=== PATIENT | male | born 1970 | race Caucasian/White ===

== ENCOUNTER 2019-05-15 08:50 | Inpatient (IN) | payer SELFPAY ==
[~2019-05-15] VITALS: Ht 182 cm; Wt 82.2 kg
[2019-05-15] VITALS (12 sets, daily range): BP systolic 74–121; BP diastolic 51–91
[2019-05-15] MEDS ORDERED: ZIPRASIDONE 20 MG INJ (GEODON) VIAL IM ONE ×2 (09:00→09:30)
[2019-05-15] MEDS ORDERED: WATER (STERILE) FOR INJECTION 10 ML ONE (09:01)
[2019-05-15 09:26] LABS: BASOPHILS % (AUTO) 0 % (0-10); EOSINOPHILS # (AUTO) 0.1 10^3/uL (0.0-0.3); EOSINOPHILS % (AUTO) 1 % (0-10); HEMATOCRIT 44 % (40-54); LYMPHOCYTES # (AUTO) 4.7 X 10^3 (1.0-4.0); LYMPHOCYTES % (AUTO) 58 % (12-44); MEAN CORPUSCULAR HEMOGLOBIN 28 PG (25-34); MEAN CORPUSCULAR HGB CONC 32 G/DL (32-36); MEAN CORPUSCULAR VOLUME 88 FL (80-99); MEAN PLATELET VOLUME 9.1 FL (7.4-10.4); MONOCYTES # (AUTO) 0.5 X 10^3 (0.0-1.0); MONOCYTES % (AUTO) 6 % (0-12); NEUTROPHILS # (AUTO) 2.9 X 10^3 (1.8-7.8); NEUTROPHILS % (AUTO) 36 % (42-75); PLATELET COUNT 354 10^3/uL (130-400); RED CELL DISTRIBUTION WIDTH 16.8 % (10.0-14.5); WHITE BLOOD COUNT 8.1 10^3/uL (4.3-11.0)
[2019-05-15 09:26] LABS: BILIRUBIN,URINE NEGATIVE (NEGATIVE); CLARITY,URINE CLEAR; COLOR,URINE YELLOW; GLUCOSE, URINE (UA) NEGATIVE (NEGATIVE); KETONES,URINE NEGATIVE (NEGATIVE); LEUKOCYTE ESTERASE ,URINE NEGATIVE (NEGATIVE); NITRITE,URINE NEGATIVE (NEGATIVE); PROTEIN,URINE NEGATIVE (NEGATIVE)
[2019-05-15] MEDS ORDERED: LORazepam INJ 2 MG/ML (ATIVAN) VIAL IVP ONE (09:30)
[2019-05-15 09:36] LABS: BACTERIA,URINE NEGATIVE /HPF
[2019-05-15 09:39] LABS: AMPHETAMINE SCREEN, URINE NEGATIVE (NEGATIVE); BARBITURATE SCREEN URINE NEGATIVE (NEGATIVE); BENZODIAZEPINES SCREEN URINE NEGATIVE (NEGATIVE); CANNABINOID SCREEN, URINE NEGATIVE (NEGATIVE); COCAINE SCREEN URINE NEGATIVE (NEGATIVE); METHADONE STAT NEGATIVE (NEGATIVE); METHAMPHETAMINE SCREEN URINE S NEGATIVE (NEGATIVE); OPIATE SCREEN URINE NEGATIVE (NEGATIVE); OXYCODONE STAT NEGATIVE (NEGATIVE); PROPOXYPHENE STAT NEGATIVE (NEGATIVE); TRICYCLIC ANTIDEPRESSANTS SCRE NEGATIVE (NEGATIVE)
--- NOTE | 2019-05-15 09:54 | Diagnostic Imaging Report ---
Indication: Hypothermia Portable chest 9:45 AM Heart size and pulmonary vascularity are normal. Lungs are clear. There are no effusions or pneumothoraces. IMPRESSION: No acute abnormalities in the chest Dictated by: Dictated on workstation # [id number]
[2019-05-15 09:57] LABS: ALANINE AMINOTRANSFERASE 56 U/L (0-55); ALBUMIN 3.4 GM/DL (3.2-4.5); ALKALINE PHOSPHATASE 50 U/L (40-136); BILIRUBIN,TOTAL 0.1 MG/DL (0.1-1.0); BUN/CREATININE RATIO 17; CALCIUM 7.8 MG/DL (8.5-10.1); CARBON DIOXIDE 23 MMOL/L (21-32); CHLORIDE 113 MMOL/L (98-107); CREATININE SERUM 0.76 MG/DL (0.60-1.30); GFR ESTIMATED > 60; GLUCOSE 101 MG/DL (70-105); MAGNESIUM 1.9 MG/DL (1.6-2.4); POTASSIUM 3.8 MMOL/L (3.6-5.0); SALICYLATE < 5.0 MG/DL (5.0-20.0); SODIUM 146 MMOL/L (135-145); TOTAL PROTEIN 6.7 GM/DL (6.4-8.2)
[2019-05-15 09:59] LABS: ACETAMINOPHEN < 10 UG/ML (10-30)
--- NOTE | 2019-05-15 10:32 | Diagnostic Imaging Report ---
PROCEDURE: CT head, face, and cervical spine without contrast. TECHNIQUE: Multiple contiguous axial images were obtained through the head, neck, and facial bones without the use of intravenous contrast. Sagittal and coronal reformations through the cervical spine and facial bones were also performed. Auto Exposure Controls were utilized during the CT exam to meet ALARA standards for radiation dose reduction. INDICATION: Found unresponsive. COMPARISON: No prior studies are available for comparison. FINDINGS: CT HEAD: The ventricles and sulci are within normal limits. No sulcal effacement or midline shift is detected. No acute intra-axial or extra-axial hemorrhage is detected. The cisterns are patent. The visualized paranasal sinuses are clear. IMPRESSION: No acute intracranial process is detected. CT CERVICAL SPINE: The alignment is normal. There is significant degenerative disc disease at the C5-C6 level with disc space narrowing and marginal spurring. No fractures are identified. The prevertebral tissues are within normal limits. The odontoid is intact. IMPRESSION: Cervical spondylosis. No acute bony abnormality is detected. CT FACE: There is an obliquely oriented fracture through the left mandibular ramus. There is a small amount of callus formation present, consistent with a more subacute fracture. The zygomatic arches are intact. The maxillary sinus hdez are intact. There appears to be an old fracture of the medial wall of the left orbit. The right orbit is unremarkable. There are minimally displaced bilateral nasal bone fractures, age indeterminate. The nasal septum shows some deviation to the right but no fracture is identified. A lucency extends through the left para-midline of the hard palate. The patient reportedly has a history of cleft palate. The frontal sinus is intact. The visualized paranasal sinuses are clear. No air/fluid levels are identified. The mastoids are well aerated. IMPRESSION: Subacute left mandibular ramus fracture. There are also age indeterminate fractures of the bilateral nasal bones. There is an old fracture of the medial wall of the left orbit. Dictated by: Dictated on workstation # [id number]
--- NOTE | 2019-05-15 10:59 | ED Neurological Problem ---
General Chief Complaint: Altered Mental Status Stated Complaint: HYPOTHERMIA Nursing Triage Note: PT ARRIVED PER EMS, PT HAS ALTERED MENTAL STATUS, PT WAS FOUND OUTSIDE SITTING DOWN AND FELL OVER. ETOH NOTED ON BREATH. PT HAS IV X2 R AND L FA #16 BY EMS. PT HAS HAD 1L WARMED NS BY EMS. GSC BY DR MCCURDY 11. PT IS NON COHERENT WHEN TRYING TO TALK. PT IS TONY SALAZAR AT THIS X. CURRENT TEMP RECTALLY 35.5 C. PT IS UNABLE TO GIVE ANY INFORMATION WHEN ASKED. Nursing Sepsis Screen: No Definite Risk Source: family, EMS, other (social media) Exam Limitations: no limitations History of Present Illness Date Seen by Provider: May 15, 2019 Time Seen by Provider: 08:53 Initial Comments This 49-year-old man initially presented via EMS as a Tony andres. He was found walking around the [facility] and was witnessed to sit down and then tipped over. He is not talking coherently and appears intoxicated with the smell of alcohol on his breath. He is alert. GCS is 11. There is no evidence of trauma and the fall from sitting position was nontraumatic according to EMS. I was eventually able to speak with patient's father, Ephraim Reeder, . He reports patient is homeless and drinks excessively. He has spent much of his adult life incarcerated. It is a Ephraim's opinion that the patient needs rehabilitation services. Father does not know of any health problems other than alcohol abuse and homelessness. C-collar could not be applied due to patient's uncooperative state. EMS initially reported temperature was 89. Temperature rectally was measured as 95 on arrival. Patient was warmed with warm blankets and placed in a warm room. EMS started warmed fluids. Allergies and Home Medications Allergies Coded Allergies: No Known Drug Allergies (Unverified , 05/15/19) Patient Home Medication List Home Medication List Reviewed: Yes Review of Systems Review of Systems Constitutional: see HPI Eyes: No Symptoms Reported Ears, Nose, Mouth, Throat: no symptoms reported Respiratory: no symptoms reported Cardiovascular: no symptoms reported Gastrointestinal: no symptoms reported Genitourinary: no symptoms reported Musculoskeletal: no symptoms reported Skin: no symptoms reported Psychiatric/Neurological: See HPI Endocrine: No Symptoms Reported Hematologic/Lymphatic: No Symptoms Reported Past Vujuozv-Kisegs-Hutprw Hx Past Med/Social Hx: Reviewed and Corrections made Patient Social History Alcohol Use: Regular Use Smoking Status: Unknown if Ever Smoked Recent Foreign Travel: No Contact w/Someone Who Travel: No Recent Infectious Disease Expo: No Past Medical History Surgeries: No (unknown) Respiratory: No (unknown) Cardiac: No (unknown) Neurological: No (unknown) Genitourinary: No (unknown) Gastrointestinal: No (unknown) Musculoskeletal: No (unknown) Endocrine: No (unknown) HEENT: Yes (cleft lip and palate) Cancer: No (unknown) Psychosocial: Yes (alcohol dependence) Physical Exam Vital Signs Vital Signs - First Documented 05/15/19 08:50 Temp 35.5 Pulse 71 Resp 12 B/P (MAP) 112/75 (87) Pulse Ox 97 O2 Delivery Room Air Capillary Refill : Less Than 3 Seconds Height, Weight, BMI Height: '" Weight: lbs. oz. kg; 27.00 BMI Method: General Appearance: WD/WN, other (agitated and combative at times) HEENT: PERRL/EOMI, normal ENT inspection, pharynx normal, other (cleft lip/palate) Neck: normal inspection Respiratory: lungs clear, normal breath sounds, no respiratory distress, no accessory muscle use Cardiovascular: regular rate, rhythm, no edema, no murmur Gastrointestinal: normal bowel sounds, non tender, soft Extremities: normal inspection, no pedal edema Neurologic/Psychiatric: other (GCS 11. Patient does not speak in comprehensible words. He does laugh as a response to some comments and questions. He moves all 4 extremities.) Skin: normal color, warm/dry Progress/Results/Core Measures Results/Orders Lab Results Laboratory Tests Test 05/15/19 09:00 05/15/19 09:17 Range/Units Urine Color YELLOW Urine Clarity CLEAR Urine pH 6.0 5-9 Urine Specific [place] <=1.005 1.016-1.022 Urine Protein NEGATIVE NEGATIVE Urine Glucose (UA) NEGATIVE NEGATIVE Urine Ketones NEGATIVE NEGATIVE Urine Nitrite NEGATIVE NEGATIVE Urine Bilirubin NEGATIVE NEGATIVE Urine Urobilinogen 0.2 < = 1.0 MG/DL Urine Leukocyte Esterase NEGATIVE NEGATIVE Urine RBC (Auto) NEGATIVE NEGATIVE Urine RBC NONE /HPF Urine WBC NONE /HPF Urine Squamous Epithelial Cells NONE /HPF Urine Crystals NONE /LPF Urine Bacteria NEGATIVE /HPF Urine Casts NONE /LPF Urine Mucus NEGATIVE /LPF Urine Culture Indicated NO Urine Opiates Screen NEGATIVE NEGATIVE Urine Oxycodone Screen NEGATIVE NEGATIVE Urine Methadone Screen NEGATIVE NEGATIVE Urine Propoxyphene Screen NEGATIVE NEGATIVE Urine Barbiturates Screen NEGATIVE NEGATIVE Ur Tricyclic Antidepressants Screen NEGATIVE NEGATIVE Urine Phencyclidine Screen NEGATIVE NEGATIVE Urine Amphetamines Screen NEGATIVE NEGATIVE Urine Methamphetamines Screen NEGATIVE NEGATIVE Urine Benzodiazepines Screen NEGATIVE NEGATIVE Urine Cocaine Screen NEGATIVE NEGATIVE Urine Cannabinoids Screen NEGATIVE NEGATIVE White Blood Count 8.1 4.3-11.0 10^3/uL Red Blood Count 5.02 4.35-5.85 10^6/uL Hemoglobin 14.0 13.3-17.7 G/DL Hematocrit 44 40-54 % Mean Corpuscular Volume 88 80-99 FL Mean Corpuscular Hemoglobin 28 25-34 PG Mean Corpuscular Hemoglobin Concent 32 32-36 G/DL Red Cell Distribution Width 16.8 H 10.0-14.5 % Platelet Count 354 130-400 10^3/uL Mean Platelet Volume 9.1 7.4-10.4 FL Neutrophils (%) (Auto) 36 L 42-75 % Lymphocytes (%) (Auto) 58 H 12-44 % Monocytes (%) (Auto) 6 0-12 % Eosinophils (%) (Auto) 1 0-10 % Basophils (%) (Auto) 0 0-10 % Neutrophils # (Auto) 2.9 1.8-7.8 X 10^3 Lymphocytes # (Auto) 4.7 H 1.0-4.0 X 10^3 Monocytes # (Auto) 0.5 0.0-1.0 X 10^3 Eosinophils # (Auto) 0.1 0.0-0.3 10^3/uL Basophils # (Auto) 0.0 0.0-0.1 10^3/uL Sodium Level 146 H 135-145 MMOL/L Potassium Level 3.8 3.6-5.0 MMOL/L Chloride Level 113 H 98-107 MMOL/L Carbon Dioxide Level 23 21-32 MMOL/L Anion Gap 10 5-14 MMOL/L Blood Urea Nitrogen 13 7-18 MG/DL Creatinine 0.76 0.60-1.30 MG/DL Estimat Glomerular Filtration Rate > 60 BUN/Creatinine Ratio 17 Glucose Level 101 70-105 MG/DL Calcium Level 7.8 L 8.5-10.1 MG/DL Corrected Calcium 8.3 L 8.5-10.1 MG/DL Magnesium Level 1.9 1.6-2.4 MG/DL Total Bilirubin 0.1 0.1-1.0 MG/DL Aspartate Amino Transf (AST/SGOT) 68 H 5-34 U/L Alanine Aminotransferase (ALT/SGPT) 56 H 0-55 U/L Alkaline Phosphatase 50 40-136 U/L Total Protein 6.7 6.4-8.2 GM/DL Albumin 3.4 3.2-4.5 GM/DL Salicylates Level < 5.0 L 5.0-20.0 MG/DL Acetaminophen Level < 10 L 10-30 UG/ML Serum Alcohol 379 *H <10 MG/DL My Orders Orders - DAGOBERTO CORLEY MD Ziprasidone Injection (Geodon Injection) (05/15/19 09:00) Water (Sterile) For Injection (Sterile W (05/15/19 09:01) Acetaminophen (05/15/19 09:17) Alcohol (05/15/19 09:17) Cbc With Automated Diff (05/15/19 09:17) Comprehensive Metabolic Panel (05/15/19 09:17) Drug Screen Stat (Urine) (05/15/19 09:17) Magnesium (05/15/19 09:17) Salicylate (05/15/19 09:17) Ua Culture If Indicated (05/15/19 09:17) Chest 1 View, Ap/Pa Only (05/15/19 09:17) Ziprasidone Injection (Geodon Injection) (05/15/19 09:30) Lorazepam Injection (Ativan Injection) (05/15/19 09:30) Ct Head/Face/Cervical Wo (05/15/19 10:08) Ondansetron Injection (Zofran Injectio (05/15/19 11:00) Medications Given in ED Current Medications Medications Dose Ordered Sig/Ciera Route Start Time Stop Time Status Last Admin Dose Admin Lorazepam 1 mg ONCE ONCE IVP 05/15/19 09:30 05/15/19 09:31 DC 05/15/19 09:30 1 MG Ondansetron HCl 8 mg ONCE ONCE IVP 05/15/19 11:00 05/15/19 11:01 DC 05/15/19 10:56 8 MG Sterile Water 10 ml @ STK-MED ONCE .ROUTE 05/15/19 09:01 05/15/19 09:06 DC 05/15/19 09:10 1.2 MLS/HR Ziprasidone 20 mg STK-MED ONCE IM 05/15/19 09:00 05/15/19 09:06 DC 05/15/19 09:10 20 MG Vital Signs/I&O 05/15/19 05/15/19 08:50 10:58 Temp 35.5 35.5 Pulse 71 82 Resp 12 11 B/P (MAP) 112/75 (87) 95/7 (87) Pulse Ox 97 98 O2 Delivery Room Air Blood Pressure Mean: 87 Progress Progress Note : Progress Note Patient was agitated and required Geodon and Ativan for his safety. CT of the head, face and C-spine was obtained. No acute injuries were identified. There is a questionable subacute jaw fracture that looks like it is at least a couple weeks old. Blood alcohol was 379. Labs were otherwise fairly unremarkable. Patient was sleeping after medications and was maintaining his airway. He was admitted to the ICU. Diagnostic Imaging Diagonstic Imaging: Xray Plain Films/CT/US/NM/MRI: chest Comments Chest x-ray viewed by me and report reviewed. See report below: NAME: TONY SALAZAR MED REC#: [id number] PT STATUS: REG ER : 05/15/1980 PHYSICIAN: DAGOBERTO CORLEY MD ADMIT DATE: 05/15/19/ER Signed Date of Exam:05/15/19 CHEST 1 VIEW, AP/PA ONLY Indication: Hypothermia Portable chest 9:45 AM Heart size and pulmonary vascularity are normal. Lungs are clear. There are no effusions or pneumothoraces. IMPRESSION: No acute abnormalities in the chest Dictated by: Dictated on workstation # [id number] Dict: 05/15/1953 Trans: 05/15/19 0953 [id number] Interpreted by: NAREN BALTAZAR MD Electronically signed by: NAREN BALTAZAR MD 05/15/1954 Diagonstic Imaging: CT Plain Films/CT/US/NM/MRI: facial bones, c-spine, head Comments CT head, face, and neck viewed by me and report reviewed. See report below: NAME: BEST REEDER MED REC#: [id number] PT STATUS: ADM Geronimo : 1970 PHYSICIAN: DAGOBERTO CORLEY MD ADMIT DATE: 05/15/19/ICU Draft Date of Exam:05/15/19 CT HEAD/FACE/CERVICAL WO PROCEDURE: CT head, face, and cervical spine without contrast. TECHNIQUE: Multiple contiguous axial images were obtained through the head, neck, and facial bones without the use of intravenous contrast. Sagittal and coronal reformations through the cervical spine and facial bones were also performed. Auto Exposure Controls were utilized during the CT exam to meet ALARA standards for radiation dose reduction. INDICATION: Found unresponsive. COMPARISON: No prior studies are available for comparison. FINDINGS: CT HEAD: The ventricles and sulci are within normal limits. No sulcal effacement or midline shift is detected. No acute intra-axial or extra-axial hemorrhage is detected. The cisterns are patent. The visualized paranasal sinuses are clear. IMPRESSION: No acute intracranial process is detected. CT CERVICAL SPINE: The alignment is normal. There is significant degenerative disc disease at the C5-C6 level with disc space narrowing and marginal spurring. No fractures are identified. The prevertebral tissues are within normal limits. The odontoid is intact. IMPRESSION: Cervical spondylosis. No acute bony abnormality is detected. CT FACE: There is an obliquely oriented fracture through the left mandibular ramus. There is a small amount of callus formation present, consistent with a more subacute fracture. The zygomatic arches are intact. The maxillary sinus hdez are intact. There appears to be an old fracture of the medial wall of the left orbit. The right orbit is unremarkable. There are minimally displaced bilateral nasal bone fractures, age indeterminate. The nasal septum shows some deviation to the right but no fracture is identified. A lucency extends through the left para-midline of the hard palate. The patient reportedly has a history of cleft palate. The frontal sinus is intact. The visualized paranasal sinuses are clear. No air/fluid levels are identified. The mastoids are well aerated. IMPRESSION: Subacute left mandibular ramus fracture. There are also age indeterminate fractures of the bilateral nasal bones. There is an old fracture of the medial wall of the left orbit. Dictated on workstation # [id number] Dict: 05/15/19 1013 Trans: 05/15/19 1103 [id number] Interpreted by: MED CHENEY MD Departure Communication (Admissions) Time/Spoke to Admitting Phy: 10:44 Dr. Shetty Impression Primary Impression: Alcohol intoxication Qualified Codes: F10.929 - Alcohol use, unspecified with intoxication, unspecified Additional Impression: AMS (altered mental status) Qualified Codes: R41.82 - Altered mental status, unspecified Disposition: 09 ADMITTED INPATIENT Condition: Improved Admissions Decision to Admit Reason: Admit from ER (General) Decision to Admit/Date: May 15, 2019 Time/Decision to Admit Time: 09:00 Departure-Patient Inst. Referrals: UNKNOWN (PCP) Primary Care Physician DAGOBERTO CORLEY MD May 15, 2019 10:59
[2019-05-15] MEDS ORDERED: ONDANSETRON 4 MG/2 ML (SDV) Z0FRAN IVP ONE (11:00)
[2019-05-15] MEDS ORDERED: ZIPRASIDONE 20 MG INJ (GEODON) VIAL IM NR (11:35)
[2019-05-15] MEDS ORDERED: ONDANSETRON 4 MG/2 ML (SDV) Z0FRAN IVP PRN (11:45)
[2019-05-15] MEDS ORDERED: CATHETER FLUSH 10 ML SYR IV PRN (11:45)
[2019-05-15] MEDS ORDERED: LACTATED RINGERS 1,000 ML IV SCH (11:45)
[2019-05-15] MEDS ORDERED: LORazepam INJ 2 MG/ML (ATIVAN) VIAL IVP PRN (11:45)
[2019-05-15] MEDS ORDERED: THIAMINE INJECTION 100 MG, FOLIC ACID INJECTION 1 MG, MAGNESIUM SULFATE 2 GM, VITAMIN M... IV SCH ×15 (11:48→12:30)
[2019-05-15] MEDS ORDERED: ANTACID SUSP 30 ML UDC (MYLANTA) PO PRN (12:00)
[2019-05-15] MEDS ORDERED: ONDANSETRON 4 MG (ZOFRAN) ORAL DISSOLVE TAB SL PRN (12:00)
[2019-05-15] MEDS ORDERED: D5 1/2 NS 1000 ML IV SOLUTION 1,000 ML IV PRN (12:00)
[2019-05-15] MEDS ORDERED: LORazepam INJ 2 MG/ML (ATIVAN) VIAL IM/IV PRN (12:00)
[2019-05-15] MEDS ORDERED: ONDANSETRON 4 MG/2 ML (SDV) Z0FRAN IV PRN (12:00)
[2019-05-15] MEDS ORDERED: SENNA W/DOCUSATE (SENOKOT S) TABLET PO PRN (12:00)
[2019-05-15] MEDS: LORazepam INJ 2 MG/ML (ATIVAN) VIAL IV PRN ×3 (12:38→20:15)
--- NOTE | 2019-05-15 14:43 | NUR ---
THIS RN HAS ATTEMPTED SEVERAL TIMES TO PLACE C02 MONITOR ON PT, PT REFUSING AND SWINGING AT THIS RN. BED ALARM ON. BED RAILS UP X 4, PT BACK TO SLEEP AT THIS TIME SA02 NOTED AT 100% ON ROOM AIR.
--- NOTE | 2019-05-15 15:57 | History & Physical-Hospitalist ---
History of Present Illness HPI/Chief Complaint Prince Reeder is a 49-year-old male with past medical history of alcohol abuse who presented with altered mental status. He was reportedly found outside of the local [facility]. Upon arrival he was found to have a blood alcohol content of 370. He was lethargic but he was alert awake and alert enough that he did not require intubation. At the time of my examination he is lethargic and uncooperative. There is no family at the bedside. Source: patient Exam Limitations: no limitations Date Seen 05/15/19 Time Seen by a Provider: 12:00 Attending Physician Sigifredo Nicholson MD PCP Unknown Referring Physician Date of Admission May 15, 2019 at 11:02 Home Medications & Allergies Home Medications Reviewed patient Home Medication Reconciliation performed by pharmacy medication reconciliations resident care technician and/or nursing. Patients Allergies have been reviewed. Allergies Allergies Coded Allergies No Known Drug Allergies (Unverified05/15/19) Past Symbwyp-Aacdtv-Dmgzev Hx Past Med/Social Hx: Reviewed Nursing Past Med/Soc Hx Patient Social History Alcohol Use: Regular Use Smoking Status: Unknown if Ever Smoked Recent Foreign Travel: No Contact w/other who traveled: No Recent Infectious Disease Expo: No Review of Systems Constitutional: see HPI Physical Exam Physical Exam Vital Signs Vital Signs - First Documented 05/15/19 08:50 Temp 35.5 Pulse 71 Resp 12 B/P (MAP) 112/75 (87) Pulse Ox 97 O2 Delivery Room Air Capillary Refill : Less Than 3 Seconds Height, Weight, BMI Height: '" Weight: lbs. oz. kg; 22.09 BMI Method: General Appearance: No Apparent Distress, WD/WN, Other (Lethargic and uncooperative) HEENT: PERRL/EOMI, Pharynx Normal Neck: Normal Inspection, Supple Respiratory: Lungs Clear, Normal Breath Sounds, No Respiratory Distress Cardiovascular: Regular Rate, Rhythm, No Edema, No Murmur Gastrointestinal: Normal Bowel Sounds, Soft; No Distended Extremity: Normal Inspection, No Pedal Edema Neurologic/Psychiatric: Other (Lethargic and uncooperative) Skin: Normal Color, Warm/Dry Results Results/Procedures Labs Laboratory Tests 05/15/19 09:17 Patient resulted labs reviewed. Imaging: Reviewed Imaging Report Assessment/Plan Admission Diagnosis Acute alcohol intoxication Admission Status: Observation Assessment and Plan Acute alcohol intoxication Alcohol dependence Acute alcoholic hepatitis EtOH 370 on arrival GCS 11 Admitted to ICU Monitor on telemetry Will begin CIWA protocol after through acute intoxication Required Geodon on arrival due to agitation Continue Geodon as needed LFTs mildly elevated, continue to monitor DVT prophylaxis: Lovenox Diagnosis/Problems Diagnosis/Problems (1) Alcohol dependence Status: Acute Qualifiers: Substance use status: with intoxication Complication of substance-induced condition: uncomplicated Qualified Codes: F10.220 - Alcohol dependence with intoxication, uncomplicated (2) Acute alcoholic hepatitis Status: Acute (3) Hypernatremia Status: Acute SIGIFREDO NICHOLSON MD May 15, 2019 15:57
--- NOTE | 2019-05-15 16:33 | NUR ---
PT'S OXYGEN LEVEL NOTED TO BE IN THE LOW 80'S WHEN HE IS SNORING, THIS RN AND Lola KINSEY RT ATTEMPTED TO PLACE OXYGEN ON PT VIA NC, PT REFUSED AFTER SEVERAL ATTEMPTS. WILL CONTINUE TO MONITOR.
[2019-05-15] MEDS: ENOXAPARIN 40 MG/0.4 ML (LOVENOX) SYR SC SCH (16:40)
--- NOTE | 2019-05-15 18:15 | Pulmonary Consultation ---
History of Present Illness History of Present Illness Date Seen by Provider: May 15, 2019 Time Seen by Provider: 18:12 Date of Admission Allergies and Home Medications Allergies Coded Allergies: No Known Drug Allergies (Unverified , 05/15/19) Home Medications Unable to Obtain Active Prescriptions or Reported Meds Past Snayyxq-Howabb-Ngeueh Hx Past Med/Social Hx: Reviewed Nursing Past Med/Soc Hx Patient Social History Alcohol Use: Regular Use Smoking Status: Unknown if Ever Smoked Recent Foreign Travel: No Contact w/Someone Who Travel: No Recent Infectious Disease Expo: No Past Medical History Surgeries: No (unknown) Respiratory: No (unknown) Cardiac: No (unknown) Neurological: No (unknown) Genitourinary: No (unknown) Gastrointestinal: No (unknown) Musculoskeletal: No (unknown) Endocrine: No (unknown) HEENT: Yes (cleft lip and palate) Cancer: No (unknown) Psychosocial: Yes (alcohol dependence) Sepsis Event Evaluation Height, Weight, BMI Height: '" Weight: lbs. oz. kg; 22.09 BMI Method: Exam Exam Vital Signs Date Time Temp Pulse Resp B/P (MAP) Pulse Ox O2 Delivery O2 Flow Rate FiO2 05/15/19 18:00 109 8 120/82 (95) Room Air 05/15/19 17:00 113 23 114/69 (84) 96 Room Air 05/15/19 16:18 95 Room Air 05/15/19 16:00 80 13 108/72 (84) 95 Room Air 05/15/19 15:00 82 13 91/62 (72) 96 Room Air 05/15/19 14:00 80 11 121/91 (101) 98 Room Air 05/15/19 13:00 82 11 88/64 (72) 95 Room Air 05/15/19 12:23 79 05/15/19 12:00 82 12 100/72 (81) 95 Room Air 05/15/19 11:29 87 05/15/19 11:15 99 Room Air 05/15/19 11:15 81 36 100/73 (82) 98 Room Air 05/15/19 10:58 35.5 82 11 95/7 (87) 98 05/15/19 08:50 35.5 71 12 112/75 (87) 97 Room Air Height & Weight Height: '" Weight: lbs. oz. kg; 22.09 BMI Method: General Appearance: No Apparent Distress, WD/WN, Other (Lethargic and uncooperative) HEENT: PERRL/EOMI, Pharynx Normal Neck: Normal Inspection, Supple Respiratory: Lungs Clear, Normal Breath Sounds, No Respiratory Distress Cardiovascular: Regular Rate, Rhythm, No Edema, No Murmur Capillary Refill: Less Than 3 Seconds Gastrointestinal: normal bowel sounds, non tender, soft Extremity: Normal Inspection, No Pedal Edema Neurologic/Psychiatric: Other (Lethargic and uncooperative) Skin: Normal Color, Warm/Dry Results Lab Laboratory Tests 05/15/19 09:17 Assessment/Plan Assessment/Plan Acute alcohol intoxication Found unresponsive Alcohol dependance -VANI protocol -End tidal C02 monitor -Will start precedex gtt Agitation -Pt required [place] upon admission Pt is homeless NIRMALA BARAHONA DO May 15, 2019 18:15
[2019-05-15] MEDS: D5 1/2 NS W/KCL 20 MEQ/L 1,000 ML IV SCH ×2 (18:33→19:48)
--- NOTE | 2019-05-15 22:06 | NUR ---
Patient hypotension reported to E ICU. Order for Fluid bolus 1000cc NS/1 hr. Precedex titrated down.
[2019-05-15] MEDS ORDERED: NS IV 1000 ML 1,000 ML ONE (22:21)
[2019-05-15] MEDS ORDERED: NS IV 1000 ML 1,000 ML IV SCH ×2 (22:30)
[2019-05-16] VITALS (15 sets, daily range): BP systolic 79–139; BP diastolic 48–93
--- NOTE | 2019-05-16 00:02 | NUR ---
Update to E ICU on patient low blood pressure at this time.
[2019-05-16] MEDS ORDERED: LACTATED RINGERS 1,000 ML IV ONE (00:17)
[2019-05-16] MEDS: D5 1/2 NS W/KCL 20 MEQ/L 1,000 ML IV SCH ×5 (00:26→22:25)
[2019-05-16] MEDS ORDERED: LACTATED RINGERS 1,000 ML IV SCH ×2 (00:30→01:45)
[2019-05-16 01:24] LABS: BASOPHILS % (AUTO) 0 % (0-10); EOSINOPHILS % (AUTO) 0 % (0-10); HEMATOCRIT 35 % (40-54); HEMOGLOBIN 11.2 G/DL (13.3-17.7); LYMPHOCYTES # (AUTO) 1.9 X 10^3 (1.0-4.0); LYMPHOCYTES % (AUTO) 27 % (12-44); MEAN CORPUSCULAR HEMOGLOBIN 29 PG (25-34); MEAN CORPUSCULAR HGB CONC 32 G/DL (32-36); MEAN CORPUSCULAR VOLUME 90 FL (80-99); MEAN PLATELET VOLUME 9.4 FL (7.4-10.4); MONOCYTES # (AUTO) 0.7 X 10^3 (0.0-1.0); MONOCYTES % (AUTO) 9 % (0-12); NEUTROPHILS # (AUTO) 4.3 X 10^3 (1.8-7.8); NEUTROPHILS % (AUTO) 63 % (42-75); PLATELET COUNT 279 10^3/uL (130-400); RED CELL DISTRIBUTION WIDTH 16.4 % (10.0-14.5); WHITE BLOOD COUNT 6.9 10^3/uL (4.3-11.0)
--- NOTE | 2019-05-16 01:30 | NUR ---
3rd Liter of IVF bolus started at this time for continued hypotension. Labs drawn also per Dr alba.
[2019-05-16 02:13] LABS: BUN/CREATININE RATIO 17; CALCIUM 7.3 MG/DL (8.5-10.1); CARBON DIOXIDE 20 MMOL/L (21-32); CHLORIDE 113 MMOL/L (98-107); CREATININE SERUM 0.87 MG/DL (0.60-1.30); GFR ESTIMATED > 60; GLUCOSE 133 MG/DL (70-105); MAGNESIUM 1.7 MG/DL (1.6-2.4); PHOSPHORUS 2.4 MG/DL (2.3-4.7); POTASSIUM 4.6 MMOL/L (3.6-5.0); SODIUM 141 MMOL/L (135-145)
[2019-05-16] MEDS ORDERED: MAGNESIUM 1 GM/100 ML IVPB 200 ML IV ONE (02:59)
[2019-05-16] MEDS: MAGNESIUM 1 GM/100 ML IVPB 100 ML IV SCH (03:08)
--- NOTE | 2019-05-16 04:52 | Pulmonary Progress Note ---
Subjective Time Seen by a Provider: 04:51 Subjective/Events-last exam Pt appears to be agitated however is awake and alert. Sepsis Event Evaluation Height, Weight, BMI Height: '" Weight: lbs. oz. kg; 22.09 BMI Method: Focused Exam Lactate Level 05/16/19 01:20: Lactic Acid Level 1.85 Lactic Acid Level Laboratory Tests Test 05/16/19 01:20 Lactic Acid Level 1.85 MMOL/L (0.50-2.00) Exam Exam Vital Signs Date Time Temp Pulse Resp B/P (MAP) Pulse Ox O2 Delivery O2 Flow Rate FiO2 05/16/19 04:00 82 12 92/67 (75) 100 Room Air 05/16/19 03:25 99 Room Air 05/16/19 03:25 37.1 Room Air 05/16/19 02:00 77 13 83/61 (68) 99 Room Air 05/16/19 01:00 74 13 79/54 (62) 100 Room Air 05/16/19 01:00 74 05/16/19 00:10 37.0 Room Air 05/16/19 00:00 70 14 82/48 (59) 100 Room Air 05/15/19 23:30 99 Room Air 05/15/19 23:00 73 14 74/51 (59) 100 Room Air 05/15/19 22:00 75 16 74/56 (62) 100 Room Air 05/15/19 21:00 94 15 98/66 (77) 96 Room Air 05/15/19 20:00 96 14 93/67 (76) 94 Room Air 05/15/19 19:20 96 Room Air 05/15/19 19:00 100 05/15/19 19:00 36.7 Room Air 05/15/19 18:00 109 8 120/82 (95) Room Air 05/15/19 17:00 113 23 114/69 (84) 96 Room Air 05/15/19 16:18 95 Room Air 05/15/19 16:00 80 13 108/72 (84) 95 Room Air 05/15/19 15:00 82 13 91/62 (72) 96 Room Air 05/15/19 14:00 80 11 121/91 (101) 98 Room Air 05/15/19 13:00 82 11 88/64 (72) 95 Room Air 1/21/20 12:23 79 05/15/19 12:00 82 12 100/72 (81) 95 Room Air 05/15/19 11:29 87 05/15/19 11:15 99 Room Air 05/15/19 11:15 81 36 100/73 (82) 98 Room Air 05/15/19 10:58 35.5 82 11 95/7 (87) 98 05/15/19 08:50 35.5 71 12 112/75 (87) 97 Room Air I & O 05/16/19 07:00 Intake Total 42800.2 ml Output Total 2420 ml Balance 8795.2 ml Height & Weight Height: '" Weight: lbs. oz. kg; 22.09 BMI Method: General Appearance: WD/WN, Anxious, Mild Distress, Other (Lethargic and uncooperative) HEENT: PERRL/EOMI, Pharynx Normal Neck: Normal Inspection, Supple Respiratory: Lungs Clear, Normal Breath Sounds, No Respiratory Distress Cardiovascular: Regular Rate, Rhythm, No Edema, No Murmur Capillary Refill: Less Than 3 Seconds Gastrointestinal: normal bowel sounds, non tender, soft Extremity: Normal Inspection, No Pedal Edema Neurologic/Psychiatric: Other (Lethargic and uncooperative) Skin: Normal Color, Warm/Dry Results Lab Laboratory Tests 05/15/19 09:17 05/16/19 01:20 Assessment/Plan Assessment/Plan Acute alcohol intoxication Found unresponsive Alcohol dependance -VANI protocol -End tidal C02 monitor -Continue precedex gtt Agitation -Pt required Geodon upon admission Pt is homeless NIRMALA BARAHONA DO May 16, 2019 04:52
[2019-05-16] MEDS ORDERED: POTASSIUM CL 10MEQ/50ML IVPB 50 ML IV SCH (06:00)
[2019-05-16] MEDS ORDERED: MAGNESIUM 1 GM/100 ML IVPB 100 ML IV SCH (06:00)
[2019-05-16] MEDS ORDERED: KCL 20 MEQ TAB (K-DUR) PO SCH (06:00)
[2019-05-16] MEDS: THIAMINE INJECTION 100 MG, FOLIC ACID INJECTION 1 MG, MAGNESIUM SULFATE 2 GM, VITAMIN M... IV SCH ×5 (08:26)
--- NOTE | 2019-05-16 08:37 | Diagnostic Imaging Report ---
INDICATION: Dyspnea. TECHNIQUE: Single view chest 3:37 AM. CORRELATION STUDY: 05/15/2019 FINDINGS: Heart size and mediastinum are generally stable. Vasculature within normal limits. There are new areas of atelectasis or infiltrate both lung bases right greater than left. Additional findings of minimal consolidation right perihilar region. IMPRESSION: 1. Development of right perihilar as well as bibasilar areas of atelectasis and/or infiltrate. Follow-up imaging as clinically warranted. Dictated by: Dictated on workstation # [id number]
[2019-05-16] MEDS ORDERED: QUET200T PO (09:29)
[2019-05-16] MEDS ORDERED: TRIH5TAB2 PO (09:29)
--- NOTE | 2019-05-16 09:29 | NUR ---
SPOKE WITH THE PATIENT ABOUT HIS MEDICATIONS THIS MORNING, HE STATES HE TAKES SEROQUEL 200MG BID AND ARTANE 5MG TID. HE STATES THE LAST TIME THESE WERE FILLED FOR HIM WAS WHEN HE WAS IN THE [facility] IN [place]. HE STATES HE WAS SENT HOME WITH A SUPPLY OF MEDS WHEN HE LEFT THERE AND JUST RAN OUT OF THEM ABOUT 3 DAYS AGO. HE STATES HE WILL NOT BE ABLE TO GET THEM REFILLED DUE TO NOT HAVING ESTABLISHED CARE WITH A DR. I CALLED [facility] AT [phone] - HE STATES THEY DO NOT HAVE MEDICAL COVERAGE [facility] AND HE CAN NOT ACCESS WHAT MEDS THE PATIENT WAS ON BUT THEY TYPICALLY USE [facility] OR [facility] IN [place]. HE DID VERIFY THE PATIENT WAS THERE FOR EXACTLY 1 MONTH AND WAS RELEASED ON 05-01-2019. HE STATES IF THERE IS MEDICATION LEFT OVER THEY DO TYPICALLY SEND IT HOME WITH THE PATIENT. I CALLED [facility] AT [phone] - THEY FILLED SEROQUEL 200MG BID #60 04-17-19. I CALLED [facility] IN [place] AT [phone] - THEY FILLED THE FOLLOWIN04-05-19 TRIHEXYPHENIDYL 5MG BID #60 (HAD REPORTED TID, I PUT ON MED REC BID LIKE PRESCRIBED) 04-05-19 QUETIAPINE 100MG BID #20 (WOULD BE GONE AND 200MG DOSE FILLED MORE RECENT AT [facility]) HE STATES HE DOES NOT TAKE ANY OTC MEDICATION.
--- NOTE | 2019-05-16 11:00 | NUR ---
Pastoral care visit.
[2019-05-16] MEDS: LORazepam 1 MG (ATIVAN) TAB PO PRN ×2 (13:23→19:20)
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
[2019-05-16] MEDS: ENOXAPARIN 40 MG/0.4 ML (LOVENOX) SYR SC SCH (16:08)
--- NOTE | 2019-05-16 18:00 | NUR ---
this RN took over patient care at this time. patient currently in the shower, verbalizes no other needs at this time
--- NOTE | 2019-05-16 18:11 | NUR ---
1755 PT TRANSFERRED TO ROOM 416 VIA W/C ACCOMPANIED BY WAQAS LYONS. ALL PERSONAL BELONGING SENT WITH PT. REPORT GIVEN TO BRANNON LYONS. Addendum: 05/16/19 at 1822 by NORMAN DIETRICH RN WAQAS LYONS TOOK TELE MONITOR TO ROOM 416 AND TELE SITTER MONITORS NOTIFIED.
[2019-05-17 00:25] VITALS: BP 123/79
[2019-05-17 04:52] VITALS: BP 120/76
[2019-05-17 08:00] VITALS: BP 130/86
--- NOTE | 2019-05-17 08:00 | NUR ---
PLEASANT AND COOPERATIVE. ADMITS TO LOW BACK PAIN WHICH IS CHRONIC, BUT DENIES OTHER COMPLAINTS.
[2019-05-17 08:37] LABS: ALANINE AMINOTRANSFERASE 49 U/L (0-55); ALBUMIN 3.2 GM/DL (3.2-4.5); ALKALINE PHOSPHATASE 50 U/L (40-136); BILIRUBIN,TOTAL 0.4 MG/DL (0.1-1.0); BUN/CREATININE RATIO 13; CALCIUM 8.4 MG/DL (8.5-10.1); CARBON DIOXIDE 22 MMOL/L (21-32); CHLORIDE 108 MMOL/L (98-107); GFR ESTIMATED > 60; GLUCOSE 109 MG/DL (70-105); MAGNESIUM 1.6 MG/DL (1.6-2.4); PHOSPHORUS 2.6 MG/DL (2.3-4.7); POTASSIUM 4.7 MMOL/L (3.6-5.0); SODIUM 140 MMOL/L (135-145); TOTAL PROTEIN 6.2 GM/DL (6.4-8.2)
[2019-05-17] MEDS: THIAMINE INJECTION 100 MG, FOLIC ACID INJECTION 1 MG, MAGNESIUM SULFATE 2 GM, VITAMIN M... IV SCH ×5 (08:48)
--- NOTE | 2019-05-17 10:00 | NUR ---
HAS PULLED IV OUT AND GETTING DRESSED. STATES DR. NICHOLSON "JUST TOLD ME SINCE I DON'T HAVE MONEY FOR A REHAB TO GO TO - THERE'S NOTHING ELSE THAT CAN BE DONE FOR ME." STATES HE MIGHT WELL LEAVE. SPR[facility]ER [employer] CALLED AND CAME TO TALK TO PATIENT.
--- NOTE | 2019-05-17 10:50 | NUR ---
PATIENT INSISTENT UPON LEAVING NOW. THIS NURSE TALKED TO DR. NICHOLSON AND HE IS GOING TO PUT IN DISCHARGE INSTRUCTIONS, BUT PATIENT WILL NOT WAIT. HE INSISTED UPON LEAVING WITHOUT SIGNING DISCHARGE PAPERS.
--- NOTE | 2019-05-17 10:51 | NUR ---
CM/SS visited patient wanting to leave AMA that was contacted from the nurse. The patient was in the room dressed in street clothes ready to leave. CM/SS discussed with the patient the challenges with getting him into a rehab facility. CM/SS did get a hold of the [facility] who stated that it would cost 15,000 dollars to go there. They do not accept medical medicaid as payer source. CM/SS attempted to get the patient placed in many different treatment facilities without success. This information appeared to make the patient upset and mad. The patient stated he wanted to leave and not have any resources for himself. This CM/SS offered to help get a cab to get him to [facility] for the day usp and get set up with more resources. He stated he did not want this SS to do that or help with anything. CM/SS attempted to give the patient printed out resources for the surrounding areas but the patient would not take them. The patient did start to tear up and stated he did not want to take advice from anyone. He called his dad while he was in the room and his dad stated he could not help him with anything because he is working. The patient hung up on his dad and pushed the chair back and walked out of the room saying "I'm going to leave". This CM/SS attempted to find the patient nurse but found the aid and informed her of the situation. The aid went to find nurse to try and get patient AMA papers however he got on the elevator. CM/SS attempted multiple times to help set up resources for the patient and patient was unwilling.
--- NOTE | 2019-05-17 11:56 | Discharge Summary ---
Discharge Summary Hospital Course Was the Problem List Reviewed?: Yes Problems/Dx: (1) Alcohol dependence Status: Acute Qualifiers: Qualified Codes: F10.220 - Alcohol dependence with intoxication, uncomplicated (2) Acute alcoholic hepatitis Status: Resolved (3) Hypernatremia Status: Resolved Hospital Course Date of Admission: May 16, 2019 at 15:36 Admission Diagnosis : Alcohol dependence with withdrawal Family Physician/Provider: Date of Discharge: 05/17/19 Discharge Diagnosis: Alcohol dependence with withdrawal Hospital Course: Prince Reeder is a 49-year-old male with past medical history of alcohol dependence, homelessness, who presented with altered mental status and was admitted with acute alcohol intoxication and alcohol withdrawal. He was treated for the alcohol withdrawal and required minimal Ativan throughout this process. Social work was consulted and assisted with his complex social situation. He currently does not have a place to live. He also wanted to undergo alcohol rehabilitation but cannot afford this. We were in the process of the finding an outpatient treatment program as well as housing, but he decided to leave AGAINST MEDICAL ADVICE. Labs and Pending Lab Test: Laboratory Tests 05/17/19 08:00: Sodium Level 140, Potassium Level 4.7, Chloride Level 108H, Carbon Dioxide Level 22, Anion Gap 10, Blood Urea Nitrogen 10, Creatinine 0.80, Estimat Glomerular Filtration Rate > 60, BUN/Creatinine Ratio 13, Glucose Level 109H, Calcium Level 8.4L, Corrected Calcium 9.0, Phosphorus Level 2.6, Magnesium Level 1.6, Total Bilirubin 0.4, Aspartate Amino Transf (AST/SGOT) 66H, Alanine Aminotransferase (ALT/SGPT) 49, Alkaline Phosphatase 50, Total Protein 6.2L, Albumin 3.2 Microbiology 05/15/19 MRSA Screen - Final, Complete MRSA not isolated Home Meds Active Reported Trihexyphenidyl HCl 5 Mg Tablet 5 Mg PO BID LAST FILLED #60 04-05-19 Seroquel (Quetiapine Fumarate) 200 Mg Tablet 200 Mg PO BID LAST FILLED #60 04-17-19 Assessment/Pt Instructions Patient left AMA Discharge Planning: <30 minutes discharge planning Discharge Instructions Discharge Diet: No Restrictions Activity as Tolerated: Yes Pneumonia Vaccine Order Indica: Yes Discharge Physical Examination Vital Signs Vital Signs Date Time Temp Pulse Resp B/P (MAP) Pulse Ox O2 Delivery O2 Flow Rate FiO2 05/17/19 08:00 36.6 79 20 130/86 (101) 96 Room Air General Appearance: No Apparent Distress, WD/WN HEENT: PERRL/EOMI, Pharynx Normal Respiratory: Lungs Clear, Normal Breath Sounds, No Respiratory Distress Cardiovascular: Regular Rate, Rhythm, No Edema, No Murmur Gastrointestinal: Normal Bowel Sounds, Non Tender, Soft Extremity: Normal Inspection, Non Tender, No Pedal Edema Skin: Normal Color, Warm/Dry Neurologic/Psychiatric: Alert, Oriented x3, No Motor/Sensory Deficits, Normal Mood/Affect Allergies: Coded Allergies: No Known Drug Allergies (Unverified , 05/15/19) Discharge Summary Date of Admission May 16, 2019 at 15:36 Date of Discharge Discharge Date: May 17, 2019 Discharge Time: 11:00 Admission Diagnosis Acute alcohol intoxication Discharge Diagnosis Alcohol dependence with acute withdrawal (1) Alcohol dependence Status: Acute Qualifiers: Qualified Codes: F10.220 - Alcohol dependence with intoxication, uncomplicated (2) Acute alcoholic hepatitis Status: Resolved (3) Hypernatremia Status: Resolved SIGIFREDO NICHOLSON MD May 17, 2019 11:56
== END 2019-05-17 10:50 | disposition left against medical advice (07) | DRG 894 ==
LOC: EDBD 08:53 → ER 08:53 → ICU 11:02 → OBSVTOIN 05-16 15:36 → 4TH 05-16 17:57
PROVIDERS: ADMIT Internal Medicine; ATTEND Internal Medicine
DX: F10.239 Alcohol dependence with withdrawal, unspecified (principal); E87.0 Hyperosmolality and hypernatremia; F10.229 Alcohol dependence with intoxication, unspecified; Y90.8 Blood alcohol level of 240 mg/100 ml or more; K70.10 Alcoholic hepatitis without ascites; R45.1 Restlessness and agitation; Z59.0 Homelessness
CPT/HCPCS: 36415; 51702; 70450; 70486; 71045; 72125; 80048; 80053; 80306; 80320; 80329; 81000; 83605; 83735; 84100; 85025; 87081; 93041; 96372; 96374; 96375; G0378

== ENCOUNTER 2019-06-10 02:55 | Emergency (ER) | payer SELFPAY ==
[~2019-06-10 02:55] MED LIST: QUET200T PO; TRIH5TAB2 PO
== END 2019-06-10 03:06 | disposition left against medical advice (07) ==
LOC: EDUNIT# 02:55 → ER 02:57
DX: S01.112A Laceration without foreign body of left eyelid and periocular area, initial encounter (principal); X58.XXXA Exposure to other specified factors, initial encounter